=== PATIENT | female | born 1960 | race Two or more races ===

== ENCOUNTER 2018-11-03 11:01 | Emergency (ER) | payer OTHER ==
[~2018-11-03] VITALS: Ht 152.4 cm; Wt 53.5 kg
[2018-11-03] MEDS ORDERED: PLAQUENIL 200MG (11:17)
[2018-11-03] MEDS ORDERED: RELAFEN 750 MG (11:18)
[2018-11-03] MEDS ORDERED: ZANTAC300 MG (11:19)
[2018-11-03] MEDS ORDERED: ZOLOFT25 MG (11:19)
[2018-11-03] MEDS ORDERED: ZOLOFT50 MG (11:20)
[2018-11-03] MEDS ORDERED: MUCINEX DM ER1 EAC1 (11:20)
[2018-11-03] MEDS ORDERED: CLARITIN10 M1 (11:20)
[2018-11-03] MEDS ORDERED: FLONASE16 GM (11:21)
== END 2018-11-03 22:49 | disposition home or self-care (01) ==
LOC: ER 11:01
DX: R51 Headache (principal); J11.1 Influenza due to unidentified influenza virus with other respiratory manifestations

== ENCOUNTER 2020-11-22 13:02 | Inpatient (IN) | payer OTHER ==
[~2020-11-22] VITALS: Ht 152.4 cm; Wt 51.3 kg
[~2020-11-22 13:02] MED LIST: CLARITIN10 M1; FLONASE16 GM; MUCINEX DM ER1 EAC1; PLAQUENIL 200MG; RELAFEN 750 MG; ZANTAC300 MG; ZOLOFT25 MG; ZOLOFT50 MG
[2020-11-22] MEDS ORDERED: DOXYCYCLINE HY100 M3 (13:26)
[2020-11-22] MEDS ORDERED: TUSSI-PRES B LIQ5 ML (13:27)
[2020-11-22] MEDS ORDERED: BACLOFEN10 MG (13:27)
[2020-11-22] MEDS ORDERED: VOLTAREN100 GM (13:28)
[2020-11-22] MEDS ORDERED: PROTONIX40 MG (13:28)
[2020-11-22] MEDS ORDERED: ZOLOFT50 MG (13:28)
[2020-11-22] MEDS ORDERED: LIPITOR40 M1 (13:29)
--- NOTE | 2020-11-22 13:46 | NUR ---
SE RECIBE PACIENTE ALERTA Y ORIENTADA EN L[place] ESFERAS. PACIENTE REFIER DOLOR EN EL COSTADO SKYLAR. PACIENTE REFIERE PRESENTAR YANG MASA EN EL PULMON. PACIENTE PRESENTA FIEBRE (101.3 F). SE REALIZA EKG Y SE CARMEN SIGNOS VITALES .
--- NOTE | 2020-11-22 15:44 | NUR ---
SE RECIBE PACIENTE ALERTA Y ORIENTADA EN TIEMPO LUGAR Y PERSONA. RN KUSH ORIENTA A PACIENTE SOBRE TRATAMIENTO ORDENADO, LA MISMA VERBALIZA ENTENDER. RN COLECTA MUESTRAS ORDENADAS, Y COLOCA VENOPUNCION PATENTE GERDA DE ERITEMA Y EDEMA. PACIENTE REHUSA MEDICAMENTO YA QUE SE HABIA TOMADO UNAS TYLENOL PREVIAMENTE.
== END 2020-12-02 20:37 | disposition home or self-care (01) | DRG 180 ==
LOC: ER 13:02 → SEC-K 20:47 → MEDI 11-23 14:19
PROVIDERS: ADMIT Internal Medicine; ATTEND Internal Medicine
PROC: 4A033R1 Measurement of Arterial Saturation, Peripheral, Percutaneous Approach (ICD-10-PCS; 2020-11-22)
PROC: 0BBG3ZX Excision of Left Upper Lung Lobe, Percutaneous Approach, Diagnostic (ICD-10-PCS; principal; 2020-11-24)
DX: C34.12 Malignant neoplasm of upper lobe, left bronchus or lung (principal); J18.9 Pneumonia, unspecified organism; C78.02 Secondary malignant neoplasm of left lung; R04.2 Hemoptysis; Z20.822 Contact with and (suspected) exposure to COVID-19; Z87.891 Personal history of nicotine dependence; F43.21 Adjustment disorder with depressed mood